=== PATIENT | female | born 1980 | race Caucasian/White ===

== ENCOUNTER 2017-06-04 16:36 | Emergency (ER) | payer BC, OTHER ==
[2017-06-04] MEDS: DIPHENHYDRAMINE 50 MG CAP PO (17:50)
== END 2017-06-04 19:18 | disposition home or self-care (01) ==
LOC: FTE 16:36
DX: L50.9 Urticaria, unspecified (principal)
CPT/HCPCS: 99283

== ENCOUNTER 2017-06-12 12:51 | Emergency (ER) | payer BC ==
[2017-06-12] MEDS: SOD CHLORIDE 0.9% 1,000 ML IV (13:19)
[2017-06-12 13:34] LABS: ADD MAN DIFF? NO
[2017-06-12 13:38] LABS: BASOPHILS % 0.3 % (0.0-2.0); EOSINOPHILS % 0.1 % (0.0-7.0); HEMATOCRIT 43.9 % (37.0-47.0); HEMOGLOBIN 14.6 g/dl (12.0-16.0); LYMPHOCYTES # 1.6 10^3/ul (0.8-2.9); LYMPHOCYTES % 17.8 % (15.0-51.0); MEAN CORPUSCULAR HEMOGLOBIN 28.5 pg (29.0-33.0); MEAN CORPUSCULAR HGB CONC 33.3 g/dl (32.0-37.0); MEAN CORPUSCULAR VOLUME 85.7 fl (82.0-101.0); MEAN PLATELET VOLUME 9.6 fl (7.4-10.4); MONOCYTE # 0.7 10^3/ul (0.3-0.9); MONOCYTES % 7.3 % (0.0-11.0); NEUTROPHIL # 6.7 10^3/ul (1.6-7.5); NEUTROPHILS % 74.3 % (39.0-77.0); PLATELET COUNT 353 10^3/UL (140-415); RED BLOOD COUNT 5.12 10^6/ul (4.20-5.40); RED CELL DISTRIBUTION WIDTH 13.1 % (11.5-14.5)
[2017-06-12 13:56] LABS: ANION GAP 17 (8-16); BLOOD UREA NITROGEN 7 mg/dl (7-20); CALCIUM 10.3 mg/dl (8.4-10.2); CARBON DIOXIDE 26 mmol/L (21-31); CHLORIDE 103 mmol/L (97-110); CREATININE 0.67 mg/dl (0.44-1.00); GLUCOSE 121 mg/dl (70-220); POTASSIUM 3.8 mmol/L (3.5-5.1); SODIUM 142 mmol/L (135-144)
[2017-06-12 14:13] LABS: FREE THYROXINE INDEX (Calc) 3.15 ug/ml (0.65-3.89); T3 UPTAKE 31.5 % (23.5-40.5)
[2017-06-12 14:17] LABS: ADD UMIC YES; UR ASCORBIC ACID NEGATIVE (NEGATIVE); UR BACTERIA FEW /HPF (NONE SEEN); UR BILIRUBIN (Dip) NEGATIVE (NEGATIVE); UR BLOOD (Dip) 2+ mg/dL (NEGATIVE); UR CLARITY CLEAR (CLEAR); UR COLOR STRAW (YELLOW); UR GLUCOSE (Dip) NEGATIVE (NEGATIVE); UR KETONES (Dip) NEGATIVE (NEGATIVE); UR LEUKOCYTE ESTERASE (Dip) NEGATIVE Leu/ul (NEGATIVE); UR NITRITE (Dip) NEGATIVE (NEGATIVE); UR RBC 0 /HPF (0-5); UR SPECIFIC GRAVITY (Dip) 1.003 (1.003-1.030); UR TOTAL PROTEIN (Dip) NEGATIVE (NEGATIVE); UR UROBILINOGEN (Dip) NEGATIVE (NEGATIVE); UR WBC 1 /HPF (0-5)
== END 2017-06-12 15:00 | disposition home or self-care (01) ==
LOC: E/R 12:51
DX: R00.2 Palpitations (principal); R20.2 Paresthesia of skin
CPT/HCPCS: 36415; 71045; 80048; 81001; 84436; 84479; 85025; 93005; 99285-25